=== PATIENT | female | born 1965 | race Caucasian/White ===

== ENCOUNTER 2020-11-21 21:42 | Emergency (ER) | payer OTHER ==
[~2020-11-21] VITALS: Ht 157.5 cm; Wt 70.3 kg
[2020-11-21 21:45] VITALS: BP_SYST 142
[2020-11-21] MEDS ORDERED: IBUP-1971 PO ×2 (22:22→22:57)
[2020-11-21] MEDS ORDERED: LEVO200C2 PO (22:22)
[2020-11-21] MEDS ORDERED: NAPR-690 PO (22:22)
[2020-11-21] MEDS ORDERED: ACETAMINOPHEN/CODEINE 300 MG-30 MG TABLET PO ONE (22:45)
[2020-11-21] MEDS ORDERED: ACET1TAB23 PO (22:57)
[2020-11-21 23:10] VITALS: BP_SYST 142
[2020-11-21] MEDS ORDERED: CEL20 PO (23:43)
== END 2020-11-21 23:10 | disposition home or self-care (01) ==
LOC: SED 21:42
DX: M25.511 Pain in right shoulder (principal); X50.9XXA Other and unspecified overexertion or strenuous movements or postures, initial encounter; Y93.89 Activity, other specified; Y92.89 Other specified places as the place of occurrence of the external cause; Y99.8 Other external cause status
CPT/HCPCS: 73030; 93005; 99283

== ENCOUNTER 2021-01-17 03:07 | Emergency (ER) | payer OTHER ==
[~2021-01-17] VITALS: Ht 157.5 cm; Wt 67.1 kg
[~2021-01-17 03:07] MED LIST: ACET1TAB23 PO; CEL20 PO; IBUP-1971 PO; LEVO200C2 PO; NAPR-690 PO
[2021-01-17 03:18] VITALS: BP_SYST 135
[2021-01-17 03:42] LABS: BILIRUBIN,URINE NEGATIVE (NEGATIVE); BLOOD, URINE 3+ (NEGATIVE); CLARITY/URINE CLOUDY (CLEAR); COLOR,URINE YELLOW (YELLOW); GLUCOSE,URINE NEGATIVE (NEGATIVE); KETONES,URINE NEGATIVE (NEGATIVE); LEUKOCYTE ESTERASE ,URINE 2+ (NEGATIVE); NITRITE, URINE NEGATIVE (NEGATIVE); PH,URINE 6.5 (5.0-8.0); PROTEIN URINE NEGATIVE (NEGATIVE); UROBILINOGEN,URINE 0.2 (0.2-1.0)
[2021-01-17 03:49] LABS: BACTERIA,URINE MODERATE /HPF (None Seen); RBC,URINE 20-50 /HPF (0-3); WBC,URINE 20-50 /HPF (0-3)
[2021-01-17 03:50] LABS: TRICHOMONAS,URINE Moderate /HPF (None Seen)
[2021-01-17] MEDS ORDERED: cefTRIAXone 1 GM VIAL ONE (04:06)
[2021-01-17] MEDS ORDERED: AZITHROMYCIN 250 MG TABLET PO ONE (04:15)
[2021-01-17] MEDS ORDERED: metroNIDAZOLE 500 MG TABLET PO ONE (04:15)
[2021-01-17] MEDS ORDERED: cefTRIAXone 0.75 GM in LIDOCAINE 1%, 20 ML MDV 2.1 ML IM ONE (04:15)
[2021-01-17] MEDS ORDERED: CEPH250C PO (04:16)
[2021-01-17 04:39] VITALS: BP_SYST 135
[2021-01-19 07:06] LABS: CHLAMYDIA TRACHOMATIS NAA Negative (Negative); NEISSERIA GONORRHOEAE NAA Negative (Negative)
== END 2021-01-17 04:39 | disposition home or self-care (01) ==
LOC: SED 03:07
DX: N30.01 Acute cystitis with hematuria (principal); A59.9 Trichomoniasis, unspecified; Z79.899 Other long term (current) drug therapy
CPT/HCPCS: 81000; 87086; 87491; 87591; 96372; 99283; J0696; J2001; Q0144

== ENCOUNTER 2021-05-28 13:28 | Emergency (ER) | payer OTHER ==
[~2021-05-28] VITALS: Ht 160 cm; Wt 64.4 kg
[~2021-05-28 13:28] MED LIST changes: +CEPH250C PO
[2021-05-28 13:53] VITALS: BP_SYST 128
[2021-05-28] MEDS ORDERED: KETOROLAC TROMETHAMINE 60 MG/2 ML VIAL IM ONE (14:45)
[2021-05-28] MEDS ORDERED: MORPHINE 4 MG INJ. 4 MG/ML VIAL IM ONE (14:45)
[2021-05-28] MEDS ORDERED: HYDR-3917 PO (15:47)
[2021-05-28 15:52] VITALS: BP_SYST 126
== END 2021-05-28 15:52 | disposition home or self-care (01) ==
LOC: SED 13:28
DX: M25.511 Pain in right shoulder (principal); Z79.899 Other long term (current) drug therapy
CPT/HCPCS: 73030; 96372; 99284; J1885; J2270

== ENCOUNTER 2021-11-07 02:52 | Emergency (ER) | payer OTHER ==
[~2021-11-07] VITALS: Ht 160 cm; Wt 61.7 kg
[~2021-11-07 02:52] MED LIST changes: +HYDR-3917 PO
[2021-11-07 03:00] VITALS: BP_SYST 155
--- NOTE | 2021-11-07 03:00 | NUR ---
Patient triaged and placed in waiting room. VSS and patient appears in no acute distress at this time., awaiting available bed, and MD notified of need for MSE.
--- NOTE | 2021-11-07 03:15 | NUR ---
ER examining patient in triage room.
[2021-11-07] MEDS ORDERED: PHEN-727 PO (03:33)
[2021-11-07] MEDS ORDERED: IBUP-1971 PO (03:33)
[2021-11-07] MEDS ORDERED: CEPH-548 PO (03:33)
[2021-11-07] MEDS ORDERED: KETOROLAC TROMETHAMINE 30 MG VIAL IM ONE (03:45)
[2021-11-07] MEDS ORDERED: PHENAZOPYRIDINE HCL 100 MG TABLET PO ONE (03:45)
[2021-11-07] MEDS ORDERED: cefTRIAXone 1 GM VIAL IM ONE (03:45)
[2021-11-07] MEDS ORDERED: LIDOCAINE 1%, 20 ML MDV 20 ML ONE (04:42)
--- NOTE | 2021-11-07 05:07 | NUR ---
Patient given written and verbal discharge instructions and verbalizes understanding. ER MD discussed with patient the results and treatment provided. Patient in stable condition. ID arm band removed. Rx of cephalexin,ibuprofen,pyridium given. Patient educated on pain management and to follow up with PMD. Pain Scale 0/10. Opportunity for questions provided and answered. Medication side effect fact sheet provided.
[2021-11-07 05:10] VITALS: BP_SYST 145
== END 2021-11-07 05:10 | disposition home or self-care (01) ==
LOC: SED 02:52
DX: R30.0 Dysuria (principal); Z79.899 Other long term (current) drug therapy
CPT/HCPCS: 81002; 81025; 96372; 99284; J0696; J1885; J2001

== ENCOUNTER 2024-01-23 17:08 | Emergency (ER) | payer OTHER ==
[~2024-01-23] VITALS: Ht 157.5 cm; Wt 61.2 kg
[~2024-01-23 17:08] MED LIST changes: +ACET-2634 PO; -ACET1TAB23 PO; +CEPH-548 PO; +DOCU250C14 PO; +ONDA-8 TL; +OXYC-128 PO; +PHEN-727 PO; +TAMS-11 PO
[2024-01-23 17:10] VITALS: BP_SYST 140; PULSE 100; RESP 18; TEMP 97.9; O2SAT 93
[2024-01-23] MEDS ORDERED: CIPR-260 PO (17:25)
[2024-01-23 17:40] LABS: BILIRUBIN,URINE NEGATIVE (NEGATIVE); BLOOD, URINE 1+ (NEGATIVE); CLARITY/URINE CLEAR (CLEAR); COLOR,URINE YELLOW (YELLOW); GLUCOSE,URINE NEGATIVE (NEGATIVE); KETONES,URINE NEGATIVE (NEGATIVE); LEUKOCYTE ESTERASE ,URINE NEGATIVE (NEGATIVE); NITRITE, URINE NEGATIVE (NEGATIVE); PROTEIN URINE TRACE (NEGATIVE); UROBILINOGEN,URINE 0.2 (0.2-1.0)
[2024-01-23 19:44] LABS: BACTERIA,URINE FEW /HPF (None Seen); CALCIUM OXALATE CRYSTALS,UR 0-10 /HPF (None Seen); MUCUS,URINE 2+ /LPF (None Seen); WBC,URINE 0-3 /HPF (0-3)
== END 2024-01-23 17:55 | disposition home or self-care (01) ==
LOC: SED 17:08
DX: N39.0 Urinary tract infection, site not specified (principal); Z79.899 Other long term (current) drug therapy; Z79.2 Long term (current) use of antibiotics
CPT/HCPCS: 36415; 81000; 81001; 81015; 87491; 99283

== ENCOUNTER 2024-06-05 13:46 | Emergency (ER) | payer OTHER ==
[~2024-06-05] VITALS: Ht 157.5 cm; Wt 61.2 kg
[~2024-06-05 13:46] MED LIST changes: +CIPR-260 PO
[2024-06-05 14:01] VITALS: BP_SYST 113; PULSE 86; RESP 16; TEMP 97.9; O2SAT 97
[2024-06-05 14:31] LABS: BASOPHILS % (AUTO) 0.7 % (0.0-2.0); EOSINOPHILS # (AUTO) 0.2 K/uL (0.0-0.4); EOSINOPHILS % (AUTO) 3.1 % (0.0-4.0); LYMPHOCYTES % (AUTO) 28.3 % (20.5-51.5); MEAN CORPUSCULAR HEMOGLOBIN 30 pg (27-31); MEAN CORPUSCULAR HGB CONC 34 % (32-36); MEAN CORPUSCULAR VOLUME 89 fL (79.0-98.0); MONOCYTES # (AUTO) 0.5 K/uL (0.0-1.0); MONOCYTES % (AUTO) 6.6 % (1.7-9.3); NEUTROPHILS # (AUTO) 4.3 K/uL (1.8-7.7); NEUTROPHILS % (AUTO) 61.3 % (40.0-70.0); PLATELET COUNT (AUTO) 288 K/uL (130-430); RED BLOOD CELL COUNT(AUTO) 4.64 MIL/uL (4.2-6.2); RED CELL DISTRIBUTION WIDTH 14.1 % (9.0-15.0); WHITE BLOOD COUNT (AUTO) 7.1 K/uL (4.8-10.8)
[2024-06-05 14:50] LABS: ALBUMIN 3.9 g/dL (3.4-4.8); CALCIUM 9.6 mg/dL (8.4-11.0); CREATININE 0.87 mg/dL (0.55-1.30); POTASSIUM 4.2 mmol/L (3.5-5.1); TOTAL BILIRUBIN 0.6 mg/dL (0.0-1.0); TOTAL PROTEIN, SERUM 7.6 g/dL (6.4-8.3)
[2024-06-05 14:59] LABS: BILIRUBIN,URINE NEGATIVE (NEGATIVE); BLOOD, URINE NEGATIVE (NEGATIVE); CLARITY/URINE CLEAR (CLEAR); COLOR,URINE YELLOW (YELLOW); GLUCOSE,URINE NEGATIVE (NEGATIVE); KETONES,URINE NEGATIVE (NEGATIVE); LEUKOCYTE ESTERASE ,URINE NEGATIVE (NEGATIVE); NITRITE, URINE NEGATIVE (NEGATIVE); PROTEIN URINE NEGATIVE (NEGATIVE); UROBILINOGEN,URINE 0.2 (0.2-1.0)
[2024-06-05] MEDS: IBUPROFEN 600 MG TABLET PO ONE (15:40)
[2024-06-05] MEDS: KETOROLAC TROMETHAMINE 30 MG VIAL IM ONE (15:41)
[2024-06-05] MEDS ORDERED: LIDO1ADH22 TP (15:49)
[2024-06-05] MEDS ORDERED: DICL20GE TP (15:49)
[2024-06-05 15:54] VITALS: BP_SYST 132; PULSE 76; RESP 16; TEMP 98.1; O2SAT 96
== END 2024-06-05 15:53 | disposition home or self-care (01) ==
LOC: SED 13:46
DX: S29.011A Strain of muscle and tendon of front wall of thorax, initial encounter (principal); Z79.899 Other long term (current) drug therapy; X58.XXXA Exposure to other specified factors, initial encounter; Y93.89 Activity, other specified; Y92.89 Other specified places as the place of occurrence of the external cause; Y99.8 Other external cause status
CPT/HCPCS: 36415; 80053; 81001; 81003; 85025; 99284